=== PATIENT | female | born 1945 | race African-American/Black ===

== ENCOUNTER 2019-04-06 11:01 | Outpatient (CLI) | payer MEDICARE ==
--- NOTE | 2019-04-06 15:06 | Mammography Report ---
DIGITAL SCREENING MAMMOGRAM WITH CAD, 04/06/2019 INDICATION: Routine screening mammography. TECHNIQUE: Digital bilateral 2D mammography was obtained in the craniocaudal and mediolateral obliq ue projections. This examination was interpreted with the benefit of Computer-Aided Detection analysi s. COMPARISON: 04/05/2018 and mammograms going back to 10/24/2011 FINDINGS: Breast Density: The breasts are heterogeneously dense, which may obscure small masses. There is no evidence of dominant mass, suspicious calcifications or architectural distortion in the r ight breast. Positioning of the left breast in the CC view is suboptimal when compared to comparison mammograms. IMPRESSION: Suboptimal positioning of the left CC view. Recommend return for a repeat left CC view wi th the nipple in profile. Follow up recommendation: Repeat films Category 0: Incomplete. Needs additional imaging evaluation and/or prior mammograms for comparison. A "normal" or negative report should not discourage follow up or biopsy of a clinically significant f inding. A written summary of these findings will be mailed to the patient. The patient will be entered into a mammography reporting system which will generate a reminder letter for the patient's next appointmen t at the appropriate interval. The [employer] recommends yearly mammograms starting at age 40 and continuing as l toni as a woman is in good health. Breast MRI is recommended for women with an approximate 20-25% or greater lifetime risk of breast cancer, including women with a strong family history of breast or ova eva cancer or who have been treated for Hodgkin's disease. Signer Name: Karel Ng MD Signed: 04/06/2019 3:01 PM Workstation Name: [id number]
== END 2019-04-06 11:02 | disposition home or self-care (01) ==
LOC: SPVWC 11:01
PROVIDERS: ATTEND Internal Medicine
DX: Z12.31 Encounter for screening mammogram for malignant neoplasm of breast (principal)
CPT/HCPCS: 77067